=== PATIENT | male | born 1945 | race Caucasian/White ===

== ENCOUNTER 2017-10-30 14:19 | Outpatient (REF) | payer OTHER, SELFPAY ==
[2017-10-30 21:58] LABS: Anion Gap 14.5 mmol/L (3-11); BUN 22 mg/dL (7-18); CO2 21.5 mmol/L (21.0-32.0); CREATININE 1.63 mg/dL (0.70-1.30); Calcium 8.8 mg/dL (8.5-10.1); Chloride 105 mmol/L (98-107); Estimated GFR 41.68 (mL/min/1.73m2); Glucose 120 mg/dL (70-100); Potassium 4.5 mmol/L (3.5-5.1); Sodium 141 mmol/L (136-145)
== END 2017-10-30 14:20 ==
LOC: NCHCN 14:19
PROVIDERS: PCP Family Medicine; Visit Provider Family Medicine
DX: N17.9 Acute kidney failure, unspecified (principal)
CPT/HCPCS: 80048

== ENCOUNTER 2018-07-27 09:55 | Outpatient (REF) | payer OTHER, SELFPAY ==
[2018-07-27 21:01] LABS: HCT 51.9 % (40.0-50.0); HGB 17.6 g/dL (13.5-17.5); Mean Corp. HGB Concentration 33.9 g/dL (32.0-36.0); Mean Corpuscular Hemoglobin 29.9 pg (27.0-33.0); Mean Corpuscular Volume 88.3 fL (80-95); Mean Platelet Volume 11.2 fL (8.0-11.0); Platelet Count 217 x1000/uL (130-400); RBC 5.88 m/cumm (4.50-6.00); RBC Distribution Width 14.2 % (11.8-14.1); White Blood Cell Count 7.56 k/cumm (4.4-10.8)
[2018-07-27 21:41] LABS: ALT 52 U/L (12-78); AST 24 U/L (15-37); Alkaline Phosphatase 98 U/L (46-116); Anion Gap 10.2 mmol/L (3-11); BUN 16 mg/dL (7-18); Bilirubin, Total 0.7 mg/dL (0.2-1.0); CO2 25.8 mmol/L (21.0-32.0); CREATININE 1.41 mg/dL (0.70-1.30); Chloride 101 mmol/L (98-107); Cholesterol 175 mg/dL (50-200); Estimated GFR 49.27 (mL/min/1.73m2); Glucose 167 mg/dL (70-100); HDL Cholesterol 34 mg/dL (40-60); LDL CHOLESTEROL 131 mg/dL (<100); Potassium 4.6 mmol/L (3.5-5.1); Sodium 137 mmol/L (136-145); Total Protein 7.3 g/dL (6.4-8.2); Triglyceride 93 mg/dL (30-150)
[2018-07-30 12:16] LABS: PSA, Screening 0.9 ng/ml (0-6.5)
== END 2018-07-27 10:15 ==
LOC: NCHCN 09:55
PROVIDERS: PCP Family Medicine; Visit Provider Nurse Practitioner Family
DX: E11.9 Type 2 diabetes mellitus without complications (principal); I10 Essential (primary) hypertension; E78.5 Hyperlipidemia, unspecified; D75.1 Secondary polycythemia; N40.0 Benign prostatic hyperplasia without lower urinary tract symptoms; Z12.5 Encounter for screening for malignant neoplasm of prostate
CPT/HCPCS: 80053; 80061; 83721; 84153; 85027; 83036

== ENCOUNTER 2019-01-28 09:49 | Outpatient (REF) | payer OTHER, SELFPAY ==
[2019-01-28 21:25] LABS: HCT 51.5 % (40.0-50.0); HGB 17.3 g/dL (13.5-17.5); Mean Corp. HGB Concentration 33.6 g/dL (32.0-36.0); Mean Corpuscular Hemoglobin 31.1 pg (27.0-33.0); Mean Corpuscular Volume 92.5 fL (80-95); Mean Platelet Volume 10.7 fL (8.0-11.0); Platelet Count 221 x1000/uL (130-400); RBC 5.57 m/cumm (4.50-6.00); RBC Distribution Width 13.6 % (11.8-14.1); White Blood Cell Count 7.93 k/cumm (4.4-10.8)
[2019-01-28 21:54] LABS: Hemoglobin A1C 7.3 % (4.5-6.2)
[2019-01-28 21:56] LABS: COMMENT (LAB VIEW ONLY) 165.95 mg/dL; Microalb ug/mg Crea 15.2 ug/mg Cr
== END 2019-01-28 10:09 ==
LOC: NCHCN 09:49
PROVIDERS: PCP Family Medicine; Visit Provider Nurse Practitioner Family
DX: E11.9 Type 2 diabetes mellitus without complications (principal); I10 Essential (primary) hypertension; D75.1 Secondary polycythemia
CPT/HCPCS: 85027; 82043; 82570; 83036

== ENCOUNTER 2019-07-31 13:43 | Outpatient (REF) | payer OTHER, SELFPAY ==
[2019-07-31 21:32] LABS: Hemoglobin A1C 7.6 % (3.8-5.6)
[2019-07-31 21:50] LABS: Anion Gap 10.5 mmol/L (3-11); BUN 28 mg/dL (7-18); CO2 28.5 mmol/L (21.0-32.0); CREATININE 1.81 mg/dL (0.70-1.30); Calcium 9.5 mg/dL (8.5-10.1); Chloride 97 mmol/L (98-107); Estimated GFR 36.83 (mL/min/1.73m2); Glucose 137 mg/dL (74-106); Magnesium 1.6 mg/dL (1.8-2.4); Potassium 4.7 mmol/L (3.5-5.1); Sodium 136 mmol/L (136-145); Vitamin B12 263 pg/mL (193-986)
== END 2019-07-31 14:03 ==
LOC: NCHCN 13:43
PROVIDERS: PCP Family Medicine; Visit Provider Nurse Practitioner Family
DX: I10 Essential (primary) hypertension (principal); E11.9 Type 2 diabetes mellitus without complications; K22.70 Barrett's esophagus without dysplasia; N40.0 Benign prostatic hyperplasia without lower urinary tract symptoms
CPT/HCPCS: 80048; 82607; 83036; 83735; 84153

== ENCOUNTER 2020-04-21 10:21 | Outpatient (REF) | payer OTHER, SELFPAY ==
[2020-04-21 14:43] LABS: COMMENT (LAB VIEW ONLY) 201.87 mg/dL; Microalb ug/mg Crea 18.3 ug/mg Cr
== END 2020-04-21 10:41 ==
LOC: NCHCN 10:21
PROVIDERS: PCP Family Medicine; Visit Provider Nurse Practitioner Family
DX: E11.9 Type 2 diabetes mellitus without complications (principal); I10 Essential (primary) hypertension
CPT/HCPCS: 82043; 82570

== ENCOUNTER 2020-10-12 09:54 | Outpatient (REF) | payer OTHER, SELFPAY ==
[2020-10-12 16:32] LABS: HCT 52.2 % (40.0-50.0); HGB 17.3 g/dL (13.5-17.5); MCH 31.3 pg (27.0-33.0); MCHC 33.1 % (32.0-36.0); MCV 94.6 fL (80-95); MPV 11.1 fL (8.0-11.0); Platelet Count 232 10^3/uL (130-400); RBC 5.52 10^6/uL (4.36-5.78); RDW 13.3 % (11.8-14.1); WBC 7.39 10^3/uL (4.4-10.8)
[2020-10-12 17:01] LABS: Hemoglobin A1C 7.7 % (<5.7)
[2020-10-12 17:28] LABS: Anion Gap 9.1 mmol/L (3-11); BUN 18 mg/dL (7-18); CO2 28.9 mmol/L (21.0-32.0); CREATININE 1.3 mg/dL (0.70-1.30); Calcium 9.2 mg/dL (8.5-10.1); Chloride 104 mmol/L (98-107); Estimated GFR 53.67 (mL/min/1.73m2); Glucose 162 mg/dL (74-106); Magnesium 1.9 mg/dL (1.8-2.4); Potassium 5.1 mmol/L (3.5-5.1); Sodium 142 mmol/L (136-145); Vitamin B12 287 pg/mL (193-986)
[2020-10-12 22:29] LABS: PSA, Screening 0.9 ng/mL (0.0-6.5)
== END 2020-10-12 09:55 | disposition home or self-care (01) ==
LOC: NCHCN 09:54
PROVIDERS: PCP Family Medicine; Visit Provider Nurse Practitioner Family
DX: I12.9 Hypertensive chronic kidney disease with stage 1 through stage 4 chronic kidney disease, or unspecified chronic kidney disease (principal); E11.22 Type 2 diabetes mellitus with diabetic chronic kidney disease; N18.30 Chronic kidney disease, stage 3 unspecified; K22.70 Barrett's esophagus without dysplasia; G47.33 Obstructive sleep apnea (adult) (pediatric)
CPT/HCPCS: 80048; 84153; 85027; 82607; 83036; 83735

== ENCOUNTER 2021-04-08 13:49 | Outpatient (REF) | payer OTHER, SELFPAY ==
[2021-04-08 16:22] LABS: COMMENT (LAB VIEW ONLY) 50.01 mg/dL; Microalb ug/mg Crea 19.4 ug/mg Cr
== END 2021-04-08 13:50 | disposition home or self-care (01) ==
LOC: NCHCN 13:49
PROVIDERS: PCP Family Medicine; Visit Provider Nurse Practitioner Family
DX: E11.9 Type 2 diabetes mellitus without complications (principal); N18.30 Chronic kidney disease, stage 3 unspecified; I10 Essential (primary) hypertension
CPT/HCPCS: 82043; 82570

== ENCOUNTER 2021-09-02 07:49 | Outpatient (REF) | payer OTHER, SELFPAY ==
[2021-09-02 16:17] LABS: Anion Gap 8.3 mmol/L (3-11); BUN 22 mg/dL (7-18); CO2 27.7 mmol/L (21.0-32.0); CREATININE 1.5 mg/dL (0.70-1.30); Calcium 8.8 mg/dL (8.5-10.1); Chloride 103 mmol/L (98-107); Estimated GFR 45.38 (mL/min/1.73m2); Glucose 136 mg/dL (74-106); Potassium 4.5 mmol/L (3.5-5.1); Sodium 139 mmol/L (136-145)
== END 2021-09-02 07:50 | disposition home or self-care (01) ==
LOC: LBN 07:49
PROVIDERS: PCP Family Medicine; Visit Provider Physician Assistant
DX: I25.10 Atherosclerotic heart disease of native coronary artery without angina pectoris (principal)
CPT/HCPCS: 80048

== ENCOUNTER 2021-09-16 16:09 | Outpatient (REF) | payer OTHER, SELFPAY ==
[2021-09-16 15:54] LABS: Anion Gap 6.1 mmol/L (3-11); BUN 22 mg/dL (7-18); CO2 28.9 mmol/L (21.0-32.0); CREATININE 1.3 mg/dL (0.70-1.30); Chloride 103 mmol/L (98-107); Estimated GFR 53.53 (mL/min/1.73m2); Glucose 124 mg/dL (74-106); Potassium 4.5 mmol/L (3.5-5.1); Sodium 138 mmol/L (136-145)
== END 2021-09-16 16:10 | disposition home or self-care (01) ==
LOC: LBN 16:09
PROVIDERS: PCP Family Medicine; Visit Provider Physician Assistant
DX: I25.10 Atherosclerotic heart disease of native coronary artery without angina pectoris (principal)
CPT/HCPCS: 80048

== ENCOUNTER 2022-03-30 10:31 | Outpatient (REF) | payer OTHER, SELFPAY ==
[2022-03-30 14:02] LABS: HCT 51.9 % (40.0-50.0); HGB 17.1 g/dL (13.5-17.5); MCH 30.3 pg (27.0-33.0); MCHC 32.9 % (32.0-36.0); MCV 92 fL (80-95); MPV 10.3 fL (8.0-11.0); Platelet Count 203 10^3/uL (130-400); RBC 5.64 10^6/uL (4.36-5.78); RDW-SD 47.3 fL; WBC 10.46 10^3/uL (4.4-10.8)
[2022-03-30 14:11] LABS: Anion Gap 4.7 mmol/L (3-11); BUN 28 mg/dL (7-18); CO2 30.3 mmol/L (21.0-32.0); CREATININE 1.5 mg/dL (0.70-1.30); Calcium 9.4 mg/dL (8.5-10.1); Chloride 103 mmol/L (98-107); Estimated GFR 47.65 (mL/min/1.73m2); Glucose 107 mg/dL (74-106); Potassium 4.9 mmol/L (3.5-5.1); Sodium 138 mmol/L (136-145)
[2022-03-30 14:19] LABS: Hemoglobin A1C 7.5 % (<5.7)
[2022-03-31 09:18] LABS: PSA, Screening 0.7 ng/mL (<=6.5)
== END 2022-03-30 10:32 | disposition home or self-care (01) ==
LOC: NCHCN 10:31
PROVIDERS: PCP Family Medicine; Visit Provider Nurse Practitioner Family
DX: N40.0 Benign prostatic hyperplasia without lower urinary tract symptoms (principal); Z12.5 Encounter for screening for malignant neoplasm of prostate; Z80.42 Family history of malignant neoplasm of prostate; E11.9 Type 2 diabetes mellitus without complications; I10 Essential (primary) hypertension; N18.30 Chronic kidney disease, stage 3 unspecified; D75.1 Secondary polycythemia
CPT/HCPCS: 80048; 84153; 85027; 83036

== ENCOUNTER 2022-06-08 14:51 | Outpatient (REF) | payer OTHER, SELFPAY ==
--- OUTSIDE RECORDS SUMMARY | 2022-06-08 14:54 | XMS_ITS | CCD ---
Author Name Unknown Address [address] [place] [address] [phone] Organization Unknown Address [address] [place] [address] [phone] Care Team Providers Care Floor Worker Transfer [place] Name Role Phone DELICIA CURRIE Attending Physician [phone] DELICIA CURRIE Rounding (Secondary) Physician [phone] Vital Signs Unknown or Not Available. Allergies Allergy Code Allergy Type Reaction Status ATORVASTATIN 80241 Drug allergy DIZZINESS Active TERBINAFINE 41336 Drug allergy RASH Active No Known Environmental Allergies 0 No known environmental allergies Active No Known Food Allergies 0 No known food allergies Active Procedures Unknown or Not Available. History of Immunizations Unknown or Not Available. Problems Unknown or Not Available. Results Unknown or Not Available. Active Medications Medication Code Dose Units Frequency Route Modificatio n Start Date/Time amLODIPine Besylate 2.5MG Oral Tablet 198134 2.5 MILLIGRAMS DAILY ORAL 11:27 Prescription Detail TAKE 2.5 MILLIGRAMS ORAL DAILY ASPIRIN LOW DOSE 81MG ORAL TABLET 0 81 MILLIGRAMS DAILY ORAL 8 11:27 Prescription Detail TAKE 81 MILLIGRAMS ORAL DAILY Ibuprofen 600MG Oral Tablet 883072 600 MILLIGRAMS THREE TIMES A DAY ORAL 04/06/2017 11:27 Prescription Detail TAKE 600 MILLIGRAMS ORAL THREE TIMES A D AY Januvia 100MG Oral Tablet 291905 100 MILLIGRAMS DAILY ORAL 11:27 Prescription Detail TAKE 100 MILLIGRAMS ORAL DAILY Lisinopril 40MG Oral Tablet 187208 40 MILLIGRAMS DAILY ORAL 11:27 Prescription Detail TAKE 40 MILLIGRAMS ORAL DAILY metFORMIN HCl 1000MG Oral Tablet, Extended Release [id number] 1 TABLET TWICE A DAY ORAL 04/06/19 18 11:27 Prescription Detail TAKE 1 TABLET ORAL TWICE A DAY Medications Administered During Visit Unknown or Not Available. Encounters Encounter Diagnosis Diagnosis Code Start Date Atherosclerotic heart diseas e of [place] coronary artery with other forms of angina pectoris [id number] 08/24/2021 Social History Smoking Status Code Start Date End Date Former smoker [id number] Patient Decision Aids Unknown or Not Available. Discharge Instructions You were admitted to [facility] on 08/24/2021 15:34 with a principal diagnosis of Atherosclerotic heart disease of [place] coronary artery with other forms of angina pectoris You were discharged from [facility] on 08/24/2021 00:00 Should you have any questions prior to discharge, please contact a member of your healthcare team. If you have left the hospital and have any questions, please contact your primary care physician. Chief Complaint and Reason For Visit Unknown or Not Available. Function Status Unknown or Not Available. Plan of Care Unknown or Not Available. Referral/Transition of Care Unknown or Not Available.
--- OUTSIDE RECORDS SUMMARY | 2022-06-08 14:54 | XMS_ITS | CCD ---
Author Name Unknown Address [address] [place] [address] [phone] Organization Unknown Address [address] [place] [address] [phone] Care Team Providers Care Supervisor Tank House Name Role Phone MORIAH FLORES Attending Physician [phone] Vital Signs Vital Sign Value Unit Date/Time Recent/Initial ? BP Systolic 109 mmHg 03/10/2021 09:30 Initial VS BP Diastolic 82 mmHg 03/10/2021 09:30 Initia l VS Respiratory Rate 16 bpm 03/10/2021 09:30 In itial VS Heart Rate 72 bpm 03/10/2021 09:30 Initial VS O2 % BldC Oximetry 94 % 03/10/2021 09:30 Initial VS Body Temperature 36 degrees 03/10/2021 09:30 In itial VS Allergies Allergy Code Allergy Type Reaction Status ATORVASTATIN 90150 Drug allergy DIZZINESS Active TERBINAFINE 73310 Drug allergy RASH Active No Known Environmental Allergies 0 No known environmental allergies Active No Known Food Allergies 0 No known food allergies Active Procedures Procedure Code Procedure Type Date EGD Transoral Biopsy Single/Multiple 96907 CPT 03/10/2021 History of Immunizations Unknown or Not Available. Problems Unknown or Not Available. Results GLUCOSE FINGER/HEEL CAPILLAR Y - Collect Date/Time: 03/10/2021 08:28 Test Name Code Test Result Test Units Test Ref Rang e GLUCOSE CAP 151 mg/dL L=70 H=116 Active Medications Medication Code Dose Units Frequency Route Modificatio n Start Date/Time amLODIPine Besylate 2.5MG Oral Tablet 330681 2.5 MILLIGRAMS DAILY ORAL 018 11:27 Prescription Detail TAKE 2.5 MILLIGRAMS ORAL DAILY ASPIRIN LOW DOSE 81MG ORAL TABLET 0 81 MILLIGRAMS DAILY ORAL 8 11:27 Prescription Detail TAKE 81 MILLIGRAMS ORAL DAILY Ibuprofen 600MG Oral Tablet 580723 600 MILLIGRAMS THREE TIMES A DAY ORAL 04/06/2017 11:27 Prescription Detail TAKE 600 MILLIGRAMS ORAL THREE TIMES A D AY Feiuvia 100MG Oral Tablet 278224 100 MILLIGRAMS DAILY ORAL 11:27 Prescription Detail TAKE 100 MILLIGRAMS ORAL DAILY Lisinopril 40MG Oral Tablet 736344 40 MILLIGRAMS DAILY ORAL 11:27 Prescription Detail TAKE 40 MILLIGRAMS ORAL DAILY metFORMIN HCl 1000MG Oral Tablet, Extended Release [id number] 1 TABLET TWICE A DAY ORAL 04/06/19 11:27 Prescription Detail TAKE 1 TABLET ORAL TWICE A DAY Medications Administered During Visit Unknown or Not Available. Encounters Encounter Diagnosis Diagnosis Code Start Date Gastric intestinal metaplasia, unspecified [id number] 03/10/2021 Social History Smoking Status Code Start Date End Date Former smoker [id number] Patient Decision Aids Unknown or Not Available. Discharge Instructions You were admitted to [facility] on 03/10/2021 08:11 with a principal diagnosis of Gastric intestinal metaplasia, unspecified You had the following procedures done:EGD Transoral Biopsy Single/Multiple You had the following tests done:GLUCOSE FINGER/HEEL CAPILLARY You were discharged from [facility] on 03/10/2021 09:50 Should you have any questions prior to [...]
--- OUTSIDE RECORDS SUMMARY | 2022-06-08 14:54 | XMS_ITS | CCD ---
Author Name Unknown Address [address] [place] [address] [phone] Organization Unknown Address [address] [place] [address] [phone] Care Team Providers Care Preservationist Name Role Phone AMOL BLACKBURN Attending Physician [phone] AMOL BLACKBURN Er Physician [phone] EDIN Bonner Registered Nurse [phone] Vital Signs Unknown or Not Available. Allergies Allergy Code Allergy Type Reaction Status ATORVASTATIN 74714 Drug allergy DIZZINESS Active TERBINAFINE 77462 Drug allergy RASH Active No Known Environmental Allergies 0 No known environmental allergies Active No Known Food Allergies 0 No known food allergies Active Procedures Unknown or Not Available. History of Immunizations Unknown or Not Available. Problems Unknown or Not Available. Results COMPREHENSIVE METABOLIC PANE L (CMP) - Collect Date/Time: 07/29/2021 14:25 Test Name Code Test Result Test Units Test Ref Rang e GLUCOSE 2345-7 187 mg/dL L=70 H=116 BUN 3094-0 26 mg/dL L=6 H=25 CREATININE 2160-0 1.99 mg/dL L=0.67 H=1.17 SODIUM SERUM 2951-2 137 mmol/L L=136 H=145 POTASSIUM SERUM 2823-3 5.4 mmol/L L=3.4 H=5 .2 CHLORIDE SERUM 2075-0 103 mmol/L L=96 H=110 CARBON DIOXIDE (CO2) 2028-9 22 mmol/L L=22 H=34 ANION GAP 86073-1 11.7 mmol/L CALCIUM SERUM 94134-3 8.3 mg/dL L=8.2 H=10. 2 BILIRUBIN TOTAL 1975-2 0.5 mg/dL L=0.0 H=1 .3 ALK. PHOS. 6768-6 70 U/L L=46 H=116 SGOT (AST) 1920-8 57 U/L L=15 H=37 SGPT (ALT) 1742-6 23 U/L L=12 H=78 TOTAL PROTEIN 2885-2 6.7 gm/dL L=6.0 H=8.0 ALBUMIN 1751-7 3.2 gm/dL L=3.4 H=5.0 AGE 75 years eGFR (non-Afr.Amer.) 85715-0 33 mL/min eGFR (Afr-Cuban) 57197-5 40 mL/min TROPONIN HIGH SENSITIVITY* - Collect Date/Time: 07/29/2021 14:25 Test Name Code Test Result Test Units Test Ref Rang e TROPONIN HS 4430.6 pg/mL L=0.0 H=60.4 Specimen seq. ADM. N/A CBC W/ DIFFERENTIAL* - Colle ct Date/Time: 07/29/2021 14:25 Test Name Code Test Result Test Units Test Ref Rang e WBC 6690-2 9.17 th/cmm L=5.00 H=10.00 NEUT % 71.0 % L=40.0 H=80.0 LYMPH % 16.7 % L=10.0 H=50.0 MONO % 64090-8 10.9 % L=2.0 H=12.0 EOS % 0.9 % L=0.0 H=8.0 BASO % 0.2 % L=0.0 H=3.0 IG % 2514-8 0.3 % L=0.0 H=1.1 NRBC % 77274-0 0.0 % L=0.0 H=0.0 NEUT abs count 751-8 6.5 th/cmm L=1.6 H=8. 4 LYMPH abs count 731-0 1.5 th/cmm L=1.5 H=4 .0 MONO abs count 742-7 1.0 th/cmm L=0.2 H=1. 0 EOS abs count 711-2 0.1 th/cmm L=0.0 H=0.5 BASO abs count 704-7 0.0 th/cmm L=0.0 H=0. 2 IG abs count 05809-5 0.0 th/cmm L=0.0 H=0.1 NRBC abs count 48945-6 0.0 mil/cmm L=0.0 H=0. 0 RBC 789-8 5.61 mil/cmm L=4.30 H=6.20 HEMOGLOBIN 718-7 16.9 gm/dL L=13.0 H=17.0 HEMATOCRIT 4544-3 51 % L=45 H=52 MCV 787-2 91 fL L=82 H=92 MCH 785-6 30.1 pg L=27.0 H=31.0 MCHC 786-4 33.1 % L=32.0 H=36.0 RDW-SD 788-0 49.4 fL L=39.0 H=49.0 PLATELET COUNT 777-3 172 th/cmm L=150 H=45 0 Active Medications Medications Administered During Visit Medication Dose Units Frequency Route Date/Time of Last Dose TICAGRELOR TABLET: 90MG 180 MG X1 PO 07/29/2021 14:22 HEPARIN INJ SDV: 5,000 UNITS/ML 5000 UNITS X1 IVP 07/29/2021 14:22 Encounters Encounter Diagnosis Diagnosis Code Start Date ST elevation (STEMI) myocard ial infarction of unspecified site I213 07/29/2021 Social History Smoking Status Code Start Date End Date Former smoker [id number] Patient Decision Aids Unknown or Not Available. Discharge Instructions You were admitted to [facility] on 07/29/2021 13:57 with a principal diagnosis of ST elevation (STEMI) myocardial infarction of unspecified site You had the following tests done:CBC W/ DIFFERENTIAL*COMPREHENSIVE METABOLIC PANEL (CMP)TROPONIN HIGH SENSITIVITY* You were discharged from [facility] on 07/29/2021 15:01 Should you have any questions prior to discharge, please contact a member of your healthcare team. If you have left the hospital and have any questions, please contact your primary care physician. Chief Complaint and Reason For Visit Chief Complaint Date of Onset WEAKNESS Function Status Unknown or Not Available. Plan of Care Unknown or Not Available. Referral/Transition of Care Unknown or Not Available.
--- OUTSIDE RECORDS SUMMARY | 2022-06-08 14:54 | XMS_ITS | CCD ---
Author Name Unknown Address [address] [place] [address] [phone] Organization Unknown Address [address] [place] [address] [phone] Care Team Providers Care Ore Bridge Operator Name Role Phone MORIAH FLORES Attending Physician [phone] Vital Signs Unknown or Not Available. Allergies Allergy Code Allergy Type Reaction Status TERBINAFINE 79689 Drug allergy Active No Known Environmental Allergies 0 No known environmental allergies Active No Known Food Allergies 0 No known food allergies Active Procedures Unknown or Not Available. History of Immunizations Unknown or Not Available. Problems Unknown or Not Available. Results RAMSES RICKSID ALEKSEYX* - Bart ect Date/Time: 03/08/2021 09:46 Test Name Code Test Result Test Units Test Ref Rang e SOURCE= Anterior nasal N/A Tier- PRE-OP N/A SARS COV2 RNA: 41452-0 NEGATIVE N/A REFERENCE RANGE: NEGAT Active Medications Medication Code Dose Units Frequency Route Modificatio n Start Date/Time amLODIPine Besylate 2.5MG Oral Tablet 745514 2.5 MILLIGRAMS DAILY ORAL 11:27 Prescription Detail TAKE 2.5 MILLIGRAMS ORAL DAILY ASPIRIN LOW DOSE 81MG ORAL TABLET 0 81 MILLIGRAMS DAILY ORAL 8 11:27 Prescription Detail TAKE 81 MILLIGRAMS ORAL DAILY Ibuprofen 600MG Oral Tablet 693993 600 MILLIGRAMS THREE TIMES A DAY ORAL 04/06/2017 11:27 Prescription Detail TAKE 600 MILLIGRAMS ORAL THREE TIMES A D AY Januvia 100MG Oral Tablet 590986 100 MILLIGRAMS DAILY ORAL 11:27 Prescription Detail TAKE 100 MILLIGRAMS ORAL DAILY Lisinopril 40MG Oral Tablet 265234 40 MILLIGRAMS DAILY ORAL 11:27 Prescription Detail TAKE 40 MILLIGRAMS ORAL DAILY metFORMIN HCl 1000MG Oral Tablet, Extended Release [id number] 1 TABLET TWICE A DAY ORAL 04/06/19 18 11:27 Prescription Detail TAKE 1 TABLET ORAL TWICE A DAY Medications Administered During Visit Unknown or Not Available. Encounters Encounter Diagnosis Diagnosis Code Start Date Pre-surgery testing [id number] 03/08/2021 Social History Smoking Status Code Start Date End Date Former smoker [id number] Patient Decision Aids Unknown or Not Available. Discharge Instructions You were admitted to [facility] on 03/08/2021 23:14 with a principal diagnosis of Encounter for preprocedural laboratory examination You had the following tests done:RAMSES COVID RHEONIX* You were discharged from [facility] on 03/08/2021 23:15 Should you have any questions prior to [...]
--- OUTSIDE RECORDS SUMMARY | 2022-06-08 14:55 | XMS_ITS | CCD ---
Author Name Unknown Address [address] [place] [address] [phone] Organization Unknown Address [address] [place] [address] [phone] Care Team Providers Care Snowboarder Name Role Phone DELICIA CURRIE Attending Physician [phone] DELICIA CURRIE Rounding (Secondary) Physician [phone] Vital Signs Unknown or Not Available. Allergies Allergy Code Allergy Type Reaction Status ATORVASTATIN 24963 Drug allergy DIZZINESS Active TERBINAFINE 34034 Drug allergy RASH Active No Known Environmental Allergies 0 No known environmental allergies Active No Known Food Allergies 0 No known food allergies Active Procedures Unknown or Not Available. History of Immunizations Unknown or Not Available. Problems Unknown or Not Available. Results Unknown or Not Available. Active Medications Medication Code Dose Units Frequency Route Modificatio n Start Date/Time amLODIPine Besylate 2.5MG Oral Tablet 471541 2.5 MILLIGRAMS DAILY ORAL 11:27 Prescription Detail TAKE 2.5 MILLIGRAMS ORAL DAILY ASPIRIN LOW DOSE 81MG ORAL TABLET 0 81 MILLIGRAMS DAILY ORAL 8 11:27 Prescription Detail TAKE 81 MILLIGRAMS ORAL DAILY Ibuprofen 600MG Oral Tablet 229749 600 MILLIGRAMS THREE TIMES A DAY ORAL 04/06/2017 11:27 Prescription Detail TAKE 600 MILLIGRAMS ORAL THREE TIMES A D AY Januvia 100MG Oral Tablet 016527 100 MILLIGRAMS DAILY ORAL 11:27 Prescription Detail TAKE 100 MILLIGRAMS ORAL DAILY Lisinopril 40MG Oral Tablet 521836 40 MILLIGRAMS DAILY ORAL 11:27 Prescription Detail TAKE 40 MILLIGRAMS ORAL DAILY metFORMIN HCl 1000MG Oral Tablet, Extended Release [id number] 1 TABLET TWICE A DAY ORAL 04/06/19 18 11:27 Prescription Detail TAKE 1 TABLET ORAL TWICE A DAY Medications Administered During Visit Unknown or Not Available. Encounters Encounter Diagnosis Diagnosis Code Start Date Atherosclerotic heart diseas e of [place] coronary artery with other forms of angina pectoris B47722 09/21/2021 Social History Smoking Status Code Start Date End Date Former smoker [id number] Patient Decision Aids Unknown or Not Available. Discharge Instructions You were admitted to [facility] on 09/21/2021 10:04 with a principal diagnosis of Atherosclerotic heart disease of [place] coronary artery with other forms of angina pectoris You were discharged from [facility] on 09/21/2021 00:00 Should you have any questions prior [...]
--- OUTSIDE RECORDS SUMMARY | 2022-06-08 14:55 | XMS_ITS | CCD ---
Author Name Unknown Address [address] [place] [address] [phone] Organization Unknown Address [address] [place] [address] [phone] Care Team Providers Care Meeting Manager Name Role Phone WALLY BAUMANN Attending Physician [phone] Vital Signs Unknown or Not Available. Allergies Allergy Code Allergy Type Reaction Status ATORVASTATIN 25710 Drug allergy DIZZINESS Active TERBINAFINE 52534 Drug allergy RASH Active No Known Environmental Allergies 0 No known environmental allergies Active No Known Food Allergies 0 No known food allergies Active Procedures Unknown or Not Available. History of Immunizations Unknown or Not Available. Problems Unknown or Not Available. Results RAMSES COVID RHEONIX* - Bart ect Date/Time: 08/27/2021 10:09 Test Name Code Test Result Test Units Test Ref Rang e Tier- 34167-1 PRE-OP N/A SARS COV2 RNA: 29666-6 NEGATIVE N/A REFERENCE RANGE: NEGAT Active Medications Medication Code Dose Units Frequency Route Modificatio n Start Date/Time amLODIPine Besylate 2.5MG Oral Tablet 840067 2.5 MILLIGRAMS DAILY ORAL 11:27 Prescription Detail TAKE 2.5 MILLIGRAMS ORAL DAILY ASPIRIN LOW DOSE 81MG ORAL TABLET 0 81 MILLIGRAMS DAILY ORAL 8 11:27 Prescription Detail TAKE 81 MILLIGRAMS ORAL DAILY Ibuprofen 600MG Oral Tablet 219873 600 MILLIGRAMS THREE TIMES A DAY ORAL 04/06/2017 11:27 Prescription Detail TAKE 600 MILLIGRAMS ORAL THREE TIMES A D AY Januvia 100MG Oral Tablet 040971 100 MILLIGRAMS DAILY ORAL 018 11:27 Prescription Detail TAKE 100 MILLIGRAMS ORAL DAILY Lisinopril 40MG Oral Tablet 098397 40 MILLIGRAMS DAILY ORAL 11:27 Prescription Detail TAKE 40 MILLIGRAMS ORAL DAILY metFORMIN HCl 1000MG Oral Tablet, Extended Release [id number] 1 TABLET TWICE A DAY ORAL 04/06/19 18 11:27 Prescription Detail TAKE 1 TABLET ORAL TWICE A DAY Medications Administered During Visit Unknown or Not Available. Encounters Encounter Diagnosis Diagnosis Code Start Date Pre-surgery testing [id number] 08/27/2021 Social History Smoking Status Code Start Date End Date Former smoker [id number] Patient Decision Aids Unknown or Not Available. Discharge Instructions You were admitted to [facility] on 08/27/2021 18:35 with a principal diagnosis of Encounter for preprocedural laboratory examination You had the following tests done:RAMSES RICKSID RHEONIX* You were discharged from [facility] on 08/27/2021 18:35 Should you have any questions prior to [...]
--- OUTSIDE RECORDS SUMMARY | 2022-06-08 14:55 | XMS_ITS | CCD ---
Author Name Unknown Address [address] [place] [address] [phone] Organization Unknown Address [address] [place] [address] [phone] Care Team Providers Care Shredder Operator Name Role Phone GABRIEL DOWLING Attending Physician [phone] Vital Signs Unknown or Not Available. Allergies Allergy Code Allergy Type Reaction Status ATORVASTATIN 70119 Drug allergy DIZZINESS Active TERBINAFINE 64774 Drug allergy RASH Active No Known Environmental Allergies 0 No known environmental allergies Active No Known Food Allergies 0 No known food allergies Active Procedures Unknown or Not Available. History of Immunizations Unknown or Not Available. Problems Unknown or Not Available. Results Unknown or Not Available. Active Medications Medication Code Dose Units Frequency Route Modificatio n Start Date/Time amLODIPine Besylate 2.5MG Oral Tablet 412010 2.5 MILLIGRAMS DAILY ORAL 11:27 Prescription Detail TAKE 2.5 MILLIGRAMS ORAL DAILY ASPIRIN LOW DOSE 81MG ORAL TABLET 0 81 MILLIGRAMS DAILY ORAL 8 11:27 Prescription Detail TAKE 81 MILLIGRAMS ORAL DAILY Ibuprofen 600MG Oral Tablet 743626 600 MILLIGRAMS THREE TIMES A DAY ORAL 04/06/2017 11:27 Prescription Detail TAKE 600 MILLIGRAMS ORAL THREE TIMES A D AY Januvia 100MG Oral Tablet 147336 100 MILLIGRAMS DAILY ORAL 018 11:27 Prescription Detail TAKE 100 MILLIGRAMS ORAL DAILY Lisinopril 40MG Oral Tablet 794607 40 MILLIGRAMS DAILY ORAL 11:27 Prescription Detail TAKE 40 MILLIGRAMS ORAL DAILY metFORMIN HCl 1000MG Oral Tablet, Extended Release 4954826 1 TABLET TWICE A DAY ORAL 04/06/19 18 11:27 Prescription Detail TAKE 1 TABLET ORAL TWICE A DAY Medications Administered During Visit Unknown or Not Available. Encounters Encounter Diagnosis Diagnosis Code Start Date ST elevation (STEMI) myocard ial infarction of unspecified site I213 09/22/2021 Social History Smoking Status Code Start Date End Date Former smoker [id number] Patient Decision Aids Unknown or Not Available. Discharge Instructions You were admitted to [facility] on 09/22/2021 08:22 with a principal diagnosis of ST elevation (STEMI) myocardial infarction of unspecified site You were discharged from [facility] on 11/05/2021 12:06 Should you have any questions prior to [...]
--- OUTSIDE RECORDS SUMMARY | 2022-06-08 14:55 | XMS_ITS | CCD ---
Author Name Unknown Address [address] [place] [address] [phone] Organization Unknown Address [address] [place] [address] [phone] Care Team Providers Care Lease Administrator Name Role Phone DELICIA CURRIE Attending Physician [phone] DELICIA CURRIE Rounding (Secondary) Physician [phone] Vital Signs Unknown or Not Available. Allergies Allergy Code Allergy Type Reaction Status ATORVASTATIN 50616 Drug allergy DIZZINESS Active TERBINAFINE 85404 Drug allergy RASH Active No Known Environmental Allergies 0 No known environmental allergies Active No Known Food Allergies 0 No known food allergies Active Procedures Unknown or Not Available. History of Immunizations Unknown or Not Available. Problems Unknown or Not Available. Results Unknown or Not Available. Active Medications Medication Code Dose Units Frequency Route Modificatio n Start Date/Time amLODIPine Besylate 2.5MG Oral Tablet 216477 2.5 MILLIGRAMS DAILY ORAL 11:27 Prescription Detail TAKE 2.5 MILLIGRAMS ORAL DAILY ASPIRIN LOW DOSE 81MG ORAL TABLET 0 81 MILLIGRAMS DAILY ORAL 8 11:27 Prescription Detail TAKE 81 MILLIGRAMS ORAL DAILY Ibuprofen 600MG Oral Tablet 461645 600 MILLIGRAMS THREE TIMES A DAY ORAL 04/06/2017 11:27 Prescription Detail TAKE 600 MILLIGRAMS ORAL THREE TIMES A D AY Januvia 100MG Oral Tablet 255627 100 MILLIGRAMS DAILY ORAL 11:27 Prescription Detail TAKE 100 MILLIGRAMS ORAL DAILY Lisinopril 40MG Oral Tablet 733304 40 MILLIGRAMS DAILY ORAL 11:27 Prescription Detail TAKE 40 MILLIGRAMS ORAL DAILY metFORMIN HCl 1000MG Oral Tablet, Extended Release 1131685 1 TABLET TWICE A DAY ORAL 04/06/19 18 11:27 Prescription Detail TAKE 1 TABLET ORAL TWICE A DAY Medications Administered During Visit Unknown or Not Available. Encounters Encounter Diagnosis Diagnosis Code Start Date Aortic stenosis, non-rheumatic [id number] 1 Social History Smoking Status Code Start Date End Date Former smoker [id number] Patient Decision Aids Unknown or Not Available. Discharge Instructions You were admitted to [facility] on 01/18/2022 08:54 with a principal diagnosis of Nonrheumatic aortic (valve) stenosis You were discharged from [facility] on 01/18/2022 00:00 Should you have any questions prior [...]
[2022-06-08 20:46] LABS: HCT 52.5 % (40.0-50.0); HGB 17.4 g/dL (13.5-17.5); MCHC 33.1 % (32.0-36.0); MCV 91 fL (80-95); MPV 11.4 fL (8.0-11.0); Platelet Count 203 10^3/uL (130-400); RDW 14.4 % (11.8-14.1); RDW-SD 47.7 fL; WBC 7.95 10^3/uL (4.4-10.8)
[2022-06-08 20:53] LABS: Anion Gap 8.4 mmol/L (3-11); BUN 22 mg/dL (7-18); CO2 26.6 mmol/L (21.0-32.0); CREATININE 1.7 mg/dL (0.70-1.30); Calcium 8.9 mg/dL (8.5-10.1); Chloride 104 mmol/L (98-107); Estimated GFR 41.01 (mL/min/1.73m2); Glucose 138 mg/dL (74-106); Potassium 4.7 mmol/L (3.5-5.1); Sodium 139 mmol/L (136-145)
== END 2022-06-08 14:52 | disposition home or self-care (01) ==
LOC: NCHCN 14:51
PROVIDERS: PCP Family Medicine; Visit Provider Internal Medicine
DX: N18.30 Chronic kidney disease, stage 3 unspecified (principal); R06.09 Other forms of dyspnea
CPT/HCPCS: 80048; 85027

== ENCOUNTER 2022-10-13 17:33 | Outpatient (REF) | payer OTHER, SELFPAY ==
[2022-10-13 14:33] LABS: HCT 50.8 % (40.0-50.0); HGB 16.6 g/dL (13.5-17.5); MCH 29.6 pg (27.0-33.0); MCHC 32.7 % (32.0-36.0); MCV 91 fL (80-95); MPV 10.1 fL (8.0-11.0); Platelet Count 232 10^3/uL (130-400); RBC 5.61 10^6/uL (4.36-5.78); RDW 14.1 % (11.8-14.1); RDW-SD 47.2 fL; WBC 6.34 10^3/uL (4.4-10.8)
[2022-10-13 14:38] LABS: Anion Gap 6.8 mmol/L (3-11); BUN 24 mg/dL (7-18); CO2 28.2 mmol/L (21.0-32.0); CREATININE 1.4 mg/dL (0.70-1.30); Calcium 9.1 mg/dL (8.5-10.1); Chloride 105 mmol/L (98-107); Estimated GFR 51.45 (mL/min/1.73m2); Glucose 93 mg/dL (74-106); Potassium 5.2 mmol/L (3.5-5.1); Sodium 140 mmol/L (136-145)
[2022-10-13 21:33] LABS: COMMENT (LAB VIEW ONLY) 97.13 mg/dL; Microalb ug/mg Crea 10.6 ug/mg Cr
== END 2022-10-13 17:34 | disposition home or self-care (01) ==
LOC: NCHCN 17:33
PROVIDERS: PCP Family Medicine; Visit Provider Nurse Practitioner Family
DX: I10 Essential (primary) hypertension (principal); I25.10 Atherosclerotic heart disease of native coronary artery without angina pectoris; D75.1 Secondary polycythemia
CPT/HCPCS: 80048; 85027; 82043; 82570

== ENCOUNTER 2023-04-11 11:42 | Outpatient (REF) | payer OTHER, SELFPAY ==
--- OUTSIDE RECORDS SUMMARY | 2023-04-11 11:45 | XMS_ITS | CCD ---
Author Name Unknown Address [address] [place] [address] [phone] Organization Unknown Address [address] [place] [address] [phone] Care Team Providers Care Entry Examiner Name Role Phone CURRIEDELICIA ALCAZAR Attending Physician [phone] Vital Signs Unknown or Not Available. Allergies Allergy Code Allergy Type Reaction Status ATORVASTATIN 26613 Drug allergy DIZZINESS Active TERBINAFINE 01888 Drug allergy RASH Active No Known Environmental Allergies 0 No known environmental allergies Active No Known Food Allergies 0 No known food allergies Active Procedures Unknown or Not Available. History of Immunizations Unknown or Not Available. Problems Unknown or Not Available. Results Unknown or Not Available. Active Medications Medication Code Dose Units Frequency Route Modificatio n Start Date/Time amLODIPine Besylate 2.5MG Oral Tablet 814514 2.5 MILLIGRAMS DAILY ORAL 11:27 Prescription Detail TAKE 2.5 MILLIGRAMS ORAL DAILY ASPIRIN LOW DOSE 81MG ORAL TABLET 0 81 MILLIGRAMS DAILY ORAL 8 11:27 Prescription Detail TAKE 81 MILLIGRAMS ORAL DAILY Ibuprofen 600MG Oral Tablet 844121 600 MILLIGRAMS THREE TIMES A DAY ORAL 04/06/2017 11:27 Prescription Detail TAKE 600 MILLIGRAMS ORAL THREE TIMES A D AY Januvia 100MG Oral Tablet 409685 100 MILLIGRAMS DAILY ORAL 11:27 Prescription Detail TAKE 100 MILLIGRAMS ORAL DAILY Lisinopril 40MG Oral Tablet 820927 40 MILLIGRAMS DAILY ORAL 11:27 Prescription Detail TAKE 40 MILLIGRAMS ORAL DAILY metFORMIN HCl 1000MG Oral Tablet, Extended Release [id number] 1 TABLET TWICE A DAY ORAL 04/06/19 18 11:27 Prescription Detail TAKE 1 TABLET ORAL TWICE A DAY Medications Administered During Visit Unknown or Not Available. Encounters Encounter Diagnosis Diagnosis Code Start Date Hypertensive heart disease with congestive heart failure [id number] 07/26/2022 Social History Smoking Status Code Start Date End Date Former smoker [id number] Patient Decision Aids Unknown or Not Available. Discharge Instructions You were admitted to [facility] on 07/26/2022 14:49 with a principal diagnosis of Hypertensive heart disease with heart failure You were discharged from [facility] on 07/26/2022 14:49 Should you have any questions prior to [...]
--- OUTSIDE RECORDS SUMMARY | 2023-04-11 11:45 | XMS_ITS | CCD ---
Author Name Unknown Address [address] [place] [address] [phone] Organization Unknown Address [address] [place] [address] [phone] Care Team Providers Care Parasitologist Name Role Phone GABRIEL DOWLING Attending Physician [phone] Vital Signs Unknown or Not Available. Allergies Allergy Code Allergy Type Reaction Status ATORVASTATIN 28020 Drug allergy DIZZINESS Active TERBINAFINE 73846 Drug allergy RASH Active No Known Environmental Allergies 0 No known environmental allergies Active No Known Food Allergies 0 No known food allergies Active Procedures Unknown or Not Available. History of Immunizations Unknown or Not Available. Problems Unknown or Not Available. Results Unknown or Not Available. Active Medications Medication Code Dose Units Frequency Route Modificatio n Start Date/Time amLODIPine Besylate 2.5MG Oral Tablet 420072 2.5 MILLIGRAMS DAILY ORAL 11:27 Prescription Detail TAKE 2.5 MILLIGRAMS ORAL DAILY ASPIRIN LOW DOSE 81MG ORAL TABLET 0 81 MILLIGRAMS DAILY ORAL 8 11:27 Prescription Detail TAKE 81 MILLIGRAMS ORAL DAILY Ibuprofen 600MG Oral Tablet 063640 600 MILLIGRAMS THREE TIMES A DAY ORAL 04/06/2017 11:27 Prescription Detail TAKE 600 MILLIGRAMS ORAL THREE TIMES A D AY Januvia 100MG Oral Tablet 012655 100 MILLIGRAMS DAILY ORAL 018 11:27 Prescription Detail TAKE 100 MILLIGRAMS ORAL DAILY Lisinopril 40MG Oral Tablet 533210 40 MILLIGRAMS DAILY ORAL 11:27 Prescription Detail TAKE 40 MILLIGRAMS ORAL DAILY metFORMIN HCl 1000MG Oral Tablet, Extended Release [id number] 1 TABLET TWICE A DAY ORAL 04/06/19 18 11:27 Prescription Detail TAKE 1 TABLET ORAL TWICE A DAY Medications Administered During Visit Unknown or Not Available. Encounters Encounter Diagnosis Diagnosis Code Start Date ST elevation (STEMI) myocard ial infarction of unspecified site I213 09/22/2021 Social History Smoking Status Code Start Date End Date Former smoker [id number] Patient Decision Aids Unknown or Not Available. Discharge Instructions You were admitted to [facility] on 09/22/2021 08:22 with a principal diagnosis of ST elevation (STEMI) myocardial infarction of unspecified site You were discharged from [facility] on 11/05/2021 12:06 Should you have [...]
--- OUTSIDE RECORDS SUMMARY | 2023-04-11 11:45 | XMS_ITS | CCD ---
Author Name Unknown Address [address] [place] [address] [phone] Organization Unknown Address [address] [place] [address] [phone] Care Team Providers Care Pattern Data Operator Name Role Phone DELICIA CURRIE Attending Physician [phone] DELICIA CURRIE Rounding (Secondary) Physician [phone] Vital Signs Unknown or Not Available. Allergies Allergy Code Allergy Type Reaction Status ATORVASTATIN 06979 Drug allergy DIZZINESS Active TERBINAFINE 44724 Drug allergy RASH Active No Known Environmental Allergies 0 No known environmental allergies Active No Known Food Allergies 0 No known food allergies Active Procedures Unknown or Not Available. History of Immunizations Unknown or Not Available. Problems Unknown or Not Available. Results Unknown or Not Available. Active Medications Medication Code Dose Units Frequency Route Modificatio n Start Date/Time amLODIPine Besylate 2.5MG Oral Tablet 551607 2.5 MILLIGRAMS DAILY ORAL 11:27 Prescription Detail TAKE 2.5 MILLIGRAMS ORAL DAILY ASPIRIN LOW DOSE 81MG ORAL TABLET 0 81 MILLIGRAMS DAILY ORAL 8 11:27 Prescription Detail TAKE 81 MILLIGRAMS ORAL DAILY Ibuprofen 600MG Oral Tablet 798094 600 MILLIGRAMS THREE TIMES A DAY ORAL 04/06/2017 11:27 Prescription Detail TAKE 600 MILLIGRAMS ORAL THREE TIMES A D AY Januvia 100MG Oral Tablet 174288 100 MILLIGRAMS DAILY ORAL 11:27 Prescription Detail TAKE 100 MILLIGRAMS ORAL DAILY Lisinopril 40MG Oral Tablet 777052 40 MILLIGRAMS DAILY ORAL 11:27 Prescription Detail TAKE 40 MILLIGRAMS ORAL DAILY metFORMIN HCl 1000MG Oral Tablet, Extended Release [id number] 1 TABLET TWICE A DAY ORAL 04/06/19 18 11:27 Prescription Detail TAKE 1 TABLET ORAL TWICE A DAY Medications Administered During Visit Unknown or Not Available. Encounters Encounter Diagnosis Diagnosis Code Start Date Atherosclerotic heart diseas e of [place] coronary artery with other forms of angina pectoris [id number] 09/21/2021 Social History Smoking Status Code Start Date End Date Former smoker [id number] Patient Decision Aids Unknown or Not Available. Discharge Instructions You were admitted to [facility] on 09/21/2021 10:04 with a principal diagnosis of Atherosclerotic heart disease of [place] coronary artery with other forms of angina pectoris You were discharged from [facility] on 09/21/2021 00:00 Should you have [...]
--- OUTSIDE RECORDS SUMMARY | 2023-04-11 11:46 | XMS_ITS | CCD ---
Author Name Unknown Address [address] [place] [address] [phone] Organization Unknown Address [address] [place] [address] [phone] Care Team Providers Care Game Advisor Name Role Phone AMOL BLACKBURN Attending Physician [phone] AMOL BLACKBURN Er Physician [phone] EDIN Bonner Registered Nurse [phone] Vital Signs Unknown or Not Available. Allergies Allergy Code Allergy Type Reaction Status ATORVASTATIN 24560 Drug allergy DIZZINESS Active TERBINAFINE 18093 Drug allergy RASH Active No Known Environmental [...] 2028-9 22 mmol/L L=22 H=34 ANION GAP 57871-2 11.7 mmol/L CALCIUM SERUM 75477-2 8.3 mg/dL L=8.2 H=10. 2 BILIRUBIN TOTAL 1975-2 0.5 mg/dL L=0.0 H=1 .3 ALK. PHOS. 6768-6 70 U/L L=46 H=116 SGOT (AST) 1920-8 57 U/L L=15 H=37 SGPT (ALT) 1742-6 23 U/L L=12 H=78 TOTAL PROTEIN 2885-2 6.7 gm/dL L=6.0 H=8.0 ALBUMIN 1751-7 3.2 gm/dL L=3.4 H=5.0 AGE 75 years eGFR (non-Afr.Amer.) 62231-7 33 mL/min eGFR (Afr-Citizen Of [place]) 44196-9 40 mL/min TROPONIN HIGH SENSITIVITY* - Collect [...] % 16.7 % L=10.0 H=50.0 MONO % 68180-8 10.9 % L=2.0 H=12.0 EOS % 0.9 % L=0.0 H=8.0 BASO % 0.2 % L=0.0 H=3.0 IG % 2514-8 0.3 % L=0.0 H=1.1 NRBC % 30580-8 0.0 % L=0.0 H=0.0 NEUT abs count 751-8 6.5 th/cmm L=1.6 H=8. 4 LYMPH abs count 731-0 1.5 th/cmm L=1.5 H=4 .0 MONO abs count 742-7 1.0 th/cmm L=0.2 H=1. 0 EOS abs count 711-2 0.1 th/cmm L=0.0 H=0.5 BASO abs count 704-7 0.0 th/cmm L=0.0 H=0. 2 IG abs count 80242-5 0.0 th/cmm L=0.0 H=0.1 NRBC abs count 08715-2 0.0 mil/cmm L=0.0 H=0. 0 RBC 789-8 [...] Code Start Date End Date Former smoker [id number] Patient Decision Aids Unknown or Not Available. Discharge Instructions You were admitted to [facility] on 07/29/2021 13:57 with a principal diagnosis of ST elevation (STEMI) myocardial infarction of unspecified site You had the following tests done:CBC W/ DIFFERENTIAL*COMPREHENSIVE METABOLIC PANEL (CMP)TROPONIN HIGH SENSITIVITY* You were discharged from [facility] on 07/29/2021 15:01 Should you have any [...]
--- OUTSIDE RECORDS SUMMARY | 2023-04-11 11:46 | XMS_ITS | CCD ---
Author Name Unknown Address [address] [place] [address] [phone] Organization Unknown Address [address] [place] [address] [phone] Care Team Providers Care Typing Office Worker Name Role Phone MORIAH FLORES Attending Physician [phone] Vital Signs Vital Sign Value Unit [...] Allergy Code Allergy Type Reaction Status ATORVASTATIN 16293 Drug allergy DIZZINESS Active TERBINAFINE 83988 Drug allergy RASH Active No Known Environmental Allergies 0 No known environmental allergies Active No Known Food Allergies 0 No known food allergies Active Procedures Procedure Code Procedure Type Date EGD Transoral Biopsy Single/Multiple 68037 CPT 03/10/2021 History of Immunizations Unknown or Not Available. Problems Unknown or Not Available. Results GLUCOSE FINGER/HEEL CAPILLAR Y - Collect Date/Time: 03/10/2021 08:28 Test Name Code Test Result Test Units Test Ref Rang e GLUCOSE CAP 151 mg/dL L=70 H=116 Active Medications Medication Code Dose Units Frequency Route Modificatio n Start Date/Time amLODIPine Besylate 2.5MG Oral Tablet 383776 2.5 MILLIGRAMS DAILY ORAL 018 11:27 Prescription Detail TAKE 2.5 MILLIGRAMS ORAL DAILY ASPIRIN LOW DOSE 81MG ORAL TABLET 0 81 MILLIGRAMS DAILY ORAL 8 11:27 Prescription Detail TAKE 81 MILLIGRAMS ORAL DAILY Ibuprofen 600MG Oral Tablet 106962 600 MILLIGRAMS THREE TIMES A DAY ORAL 04/06/2017 11:27 Prescription Detail TAKE 600 MILLIGRAMS ORAL THREE TIMES A D AY Feiuvia 100MG Oral Tablet 886532 100 MILLIGRAMS DAILY ORAL 11:27 Prescription Detail TAKE 100 MILLIGRAMS ORAL DAILY Lisinopril 40MG Oral Tablet 545331 40 MILLIGRAMS DAILY ORAL 11:27 Prescription Detail TAKE 40 MILLIGRAMS ORAL DAILY metFORMIN HCl 1000MG Oral Tablet, Extended Release 7123249 1 TABLET TWICE A DAY ORAL 04/06/19 11:27 Prescription Detail TAKE 1 TABLET ORAL TWICE A DAY Medications Administered During Visit Unknown or Not Available. Encounters Encounter Diagnosis Diagnosis Code Start Date Gastric intestinal metaplasia, unspecified [id number] 03/10/2021 Social History Smoking Status Code Start Date End Date Former smoker [id number] Patient Decision Aids Unknown or Not Available. Discharge Instructions You were admitted to [facility] on 03/10/2021 08:11 with a principal diagnosis of Gastric intestinal metaplasia, unspecified You had the following procedures done:EGD Transoral Biopsy Single/Multiple You had the following tests done:GLUCOSE FINGER/HEEL CAPILLARY You were discharged from [facility] on 03/10/2021 09:50 Should you have [...]
--- OUTSIDE RECORDS SUMMARY | 2023-04-11 11:46 | XMS_ITS | CCD ---
Author Name Unknown Address [address] [place] [address] [phone] Organization Unknown Address [address] [place] [address] [phone] Care Team Providers Care Business Systems Technician Name Role Phone MORIAH FLORES Attending Physician [phone] Vital Signs Unknown or Not Available. Allergies Allergy Code Allergy Type Reaction Status TERBINAFINE 29176 Drug allergy Active No Known Environmental Allergies [...] N/A Tier- PRE-OP N/A SARS COV2 RNA: 99552-6 NEGATIVE N/A REFERENCE RANGE: NEGAT Active Medications Medication Code Dose Units Frequency Route Modificatio n Start Date/Time amLODIPine Besylate 2.5MG Oral Tablet 779866 2.5 MILLIGRAMS DAILY ORAL 11:27 Prescription Detail TAKE 2.5 MILLIGRAMS ORAL DAILY ASPIRIN LOW DOSE 81MG ORAL TABLET 0 81 MILLIGRAMS DAILY ORAL 8 11:27 Prescription Detail TAKE 81 MILLIGRAMS ORAL DAILY Ibuprofen 600MG Oral Tablet 091510 600 MILLIGRAMS THREE TIMES A DAY ORAL 04/06/2017 11:27 Prescription Detail TAKE 600 MILLIGRAMS ORAL THREE TIMES A D AY Januvia 100MG Oral Tablet 868965 100 MILLIGRAMS DAILY ORAL 11:27 Prescription Detail TAKE 100 MILLIGRAMS ORAL DAILY Lisinopril 40MG Oral Tablet 551596 40 MILLIGRAMS DAILY ORAL 11:27 Prescription Detail TAKE 40 MILLIGRAMS ORAL DAILY metFORMIN HCl 1000MG Oral Tablet, Extended Release [id number] 1 TABLET TWICE A DAY ORAL 04/06/19 18 11:27 Prescription Detail TAKE 1 TABLET ORAL TWICE A DAY Medications Administered During Visit Unknown or Not Available. Encounters Encounter Diagnosis Diagnosis Code Start Date Pre-surgery testing [id number] 03/08/2021 Social History Smoking Status Code Start Date End Date Former smoker [id number] Patient Decision Aids Unknown or Not Available. Discharge Instructions You were admitted to [facility] on 03/08/2021 23:14 with a principal diagnosis of Encounter for preprocedural laboratory examination You had the following tests done:RAMSES COVID RHEONIX* You were discharged from [facility] on 03/08/2021 23:15 Should you have any [...]
--- OUTSIDE RECORDS SUMMARY | 2023-04-11 11:46 | XMS_ITS | CCD ---
Author Name Unknown Address [address] [place] [address] [phone] Organization Unknown Address [address] [place] [address] [phone] Care Team Providers Care Distilling Department Supervisor Name Role Phone WALLY BAUMANN Attending Physician [phone] Vital Signs Unknown or Not Available. Allergies Allergy Code Allergy Type Reaction Status ATORVASTATIN 08413 Drug allergy DIZZINESS Active TERBINAFINE 21258 Drug allergy RASH Active No Known Environmental Allergies 0 No known environmental allergies Active No Known Food Allergies 0 No known food allergies Active Procedures Unknown or Not Available. History of Immunizations Unknown or Not Available. Problems Unknown or Not Available. Results RAMSES COVID RHEONIX* - Bart ect Date/Time: 08/27/2021 10:09 Test Name Code Test Result Test Units Test Ref Rang e Tier- 94968-9 PRE-OP N/A SARS COV2 RNA: 07895-2 NEGATIVE N/A REFERENCE RANGE: NEGAT Active Medications Medication Code Dose Units Frequency Route Modificatio n Start Date/Time amLODIPine Besylate 2.5MG Oral Tablet 860229 2.5 MILLIGRAMS DAILY ORAL 11:27 Prescription Detail TAKE 2.5 MILLIGRAMS ORAL DAILY ASPIRIN LOW DOSE 81MG ORAL TABLET 0 81 MILLIGRAMS DAILY ORAL 8 11:27 Prescription Detail TAKE 81 MILLIGRAMS ORAL DAILY Ibuprofen 600MG Oral Tablet 570317 600 MILLIGRAMS THREE TIMES A DAY ORAL 04/06/2017 11:27 Prescription Detail TAKE 600 MILLIGRAMS ORAL THREE TIMES A D AY Januvia 100MG Oral Tablet 975645 100 MILLIGRAMS DAILY ORAL 018 11:27 Prescription Detail TAKE 100 MILLIGRAMS ORAL DAILY Lisinopril 40MG Oral Tablet 197684 40 MILLIGRAMS DAILY ORAL 11:27 Prescription Detail TAKE 40 MILLIGRAMS ORAL DAILY metFORMIN HCl 1000MG Oral Tablet, Extended Release 7498012 1 TABLET TWICE A DAY ORAL 04/06/19 18 11:27 Prescription Detail TAKE 1 TABLET ORAL TWICE A DAY Medications Administered During Visit Unknown or Not Available. Encounters Encounter Diagnosis Diagnosis Code Start Date Pre-surgery testing [id number] 08/27/2021 Social History Smoking Status Code Start Date End Date Former smoker [id number] Patient Decision Aids Unknown or Not Available. Discharge Instructions You were admitted to [facility] on 08/27/2021 18:35 with a principal diagnosis of Encounter for preprocedural laboratory examination You had the following tests done:RAMSES RICKSID RHEONIX* You were discharged from [facility] on 08/27/2021 18:35 Should you have any [...]
--- OUTSIDE RECORDS SUMMARY | 2023-04-11 11:46 | XMS_ITS | CCD ---
Author Name Unknown Address [address] [place] [address] [phone] Organization Unknown Address [address] [place] [address] [phone] Care Team Providers Care Maintenance Custodian Name Role Phone DELICIA CURRIE Attending Physician [phone] DELICIA CURRIE Rounding (Secondary) Physician [phone] Vital Signs Unknown or Not Available. Allergies Allergy Code Allergy Type Reaction Status ATORVASTATIN 17478 Drug allergy DIZZINESS Active TERBINAFINE 25455 Drug allergy RASH Active No Known Environmental Allergies 0 No known environmental allergies Active No Known Food Allergies 0 No known food allergies Active Procedures Unknown or Not Available. History of Immunizations Unknown or Not Available. Problems Unknown or Not Available. Results Unknown or Not Available. Active Medications Medication Code Dose Units Frequency Route Modificatio n Start Date/Time amLODIPine Besylate 2.5MG Oral Tablet 471314 2.5 MILLIGRAMS DAILY ORAL 11:27 Prescription Detail TAKE 2.5 MILLIGRAMS ORAL DAILY ASPIRIN LOW DOSE 81MG ORAL TABLET 0 81 MILLIGRAMS DAILY ORAL 8 11:27 Prescription Detail TAKE 81 MILLIGRAMS ORAL DAILY Ibuprofen 600MG Oral Tablet 868421 600 MILLIGRAMS THREE TIMES A DAY ORAL 04/06/2017 11:27 Prescription Detail TAKE 600 MILLIGRAMS ORAL THREE TIMES A D AY Januvia 100MG Oral Tablet 635989 100 MILLIGRAMS DAILY ORAL 11:27 Prescription Detail TAKE 100 MILLIGRAMS ORAL DAILY Lisinopril 40MG Oral Tablet 621488 40 MILLIGRAMS DAILY ORAL 11:27 Prescription Detail TAKE 40 MILLIGRAMS ORAL DAILY metFORMIN HCl 1000MG Oral Tablet, Extended Release [id number] 1 TABLET TWICE A DAY ORAL 04/06/19 18 11:27 Prescription Detail TAKE 1 TABLET ORAL TWICE A DAY Medications Administered During Visit Unknown or Not Available. Encounters Encounter Diagnosis Diagnosis Code Start Date Atherosclerotic heart diseas e of [place] coronary artery with other forms of angina pectoris [id number] 08/24/2021 Social History Smoking Status Code Start Date End Date Former smoker [id number] Patient Decision Aids Unknown or Not Available. Discharge Instructions You were admitted to [facility] on 08/24/2021 15:34 with a principal diagnosis of Atherosclerotic heart disease of [place] coronary artery with other forms of angina [...]
[2023-04-11 14:50] LABS: Anion Gap 8.7 mmol/L (3-11); BUN 22 mg/dL (7-18); CO2 26.3 mmol/L (21.0-32.0); CREATININE 1.6 mg/dL (0.70-1.30); Calcium 9.4 mg/dL (8.5-10.1); Calculated LDL 52 mg/dL (<100); Chloride 101 mmol/L (98-107); Cholesterol 104 mg/dL (<200); Estimated GFR 43.83 (mL/min/1.73m2); Glucose 108 mg/dL (74-106); HDL Cholesterol 36 mg/dL (40-60); Potassium 4.3 mmol/L (3.5-5.1); Sodium 136 mmol/L (136-145); Triglyceride 84 mg/dL (<150)
== END 2023-04-11 11:43 | disposition home or self-care (01) ==
LOC: NCHCN 11:42
PROVIDERS: PCP Family Medicine; Visit Provider Nurse Practitioner Family
DX: I10 Essential (primary) hypertension (principal); I25.10 Atherosclerotic heart disease of native coronary artery without angina pectoris
CPT/HCPCS: 80048; 80061

== ENCOUNTER 2023-04-12 20:53 | Outpatient (REF) | payer OTHER, SELFPAY ==
[2023-04-13 18:27] LABS: PSA, Screening 0.9 ng/mL (<=6.5)
--- OUTSIDE RECORDS SUMMARY | 2023-04-14 11:16 | XMS_ITS | CCD ---
Author Name Unknown Address [address] [place] [address] [phone] Organization Unknown Address [address] [place] [address] [phone] Care Team Providers Care Contract Programmer Name Role Phone WALLY BAUMANN Attending Physician [phone] Vital Signs Unknown or Not Available. Allergies Allergy Code Allergy Type Reaction Status ATORVASTATIN 95534 Drug allergy DIZZINESS Active TERBINAFINE 60704 Drug allergy RASH Active No Known Environmental Allergies 0 No known environmental allergies Active No Known Food Allergies 0 No known food allergies Active Procedures Unknown or Not Available. History of Immunizations Unknown or Not Available. Problems Unknown or Not Available. Results RAMSES COVID RHEONIX* - Bart ect Date/Time: 08/27/2021 10:09 Test Name Code Test Result Test Units Test Ref Rang e Tier- 20520-3 PRE-OP N/A SARS COV2 RNA: 18736-4 NEGATIVE N/A REFERENCE RANGE: NEGAT Active Medications Medication Code Dose Units Frequency Route Modificatio n Start Date/Time amLODIPine Besylate 2.5MG Oral Tablet 174195 2.5 MILLIGRAMS DAILY ORAL 11:27 Prescription Detail TAKE 2.5 MILLIGRAMS ORAL DAILY ASPIRIN LOW DOSE 81MG ORAL TABLET 0 81 MILLIGRAMS DAILY ORAL 8 11:27 Prescription Detail TAKE 81 MILLIGRAMS ORAL DAILY Ibuprofen 600MG Oral Tablet 111393 600 MILLIGRAMS THREE TIMES A DAY ORAL 04/06/2017 11:27 Prescription Detail TAKE 600 MILLIGRAMS ORAL THREE TIMES A D AY Januvia 100MG Oral Tablet 146068 100 MILLIGRAMS DAILY ORAL 018 11:27 Prescription Detail TAKE 100 MILLIGRAMS ORAL DAILY Lisinopril 40MG Oral Tablet 951933 40 MILLIGRAMS DAILY ORAL 11:27 Prescription Detail TAKE 40 MILLIGRAMS ORAL DAILY metFORMIN HCl 1000MG Oral Tablet, Extended Release [id number] 1 TABLET TWICE A DAY ORAL 04/06/19 18 11:27 Prescription Detail TAKE 1 TABLET ORAL TWICE A DAY Medications Administered During Visit Unknown or Not Available. Encounters Encounter Diagnosis Diagnosis Code Start Date Pre-surgery testing [id number] 08/27/2021 Social History Smoking Status Code Start Date End Date Former smoker 0583770 Patient Decision Aids Unknown or Not Available. Discharge Instructions You were admitted to [facility] on 08/27/2021 18:35 with a principal diagnosis of Encounter for preprocedural laboratory examination You had the following tests done:RAMSES RICKSID RHEONIX* You were discharged from [facility] on 08/27/2021 18:35 Should you have [...]
--- OUTSIDE RECORDS SUMMARY | 2023-04-14 11:16 | XMS_ITS | CCD ---
Author Name Unknown Address [address] [place] [address] [phone] Organization Unknown Address [address] [place] [address] [phone] Care Team Providers Care Licensed Marine Engineer Name Role Phone GABRIEL DOWLING Attending Physician [phone] Vital Signs Unknown or Not Available. Allergies Allergy Code Allergy Type Reaction Status ATORVASTATIN 97648 Drug allergy DIZZINESS Active TERBINAFINE 18752 Drug allergy RASH Active No Known Environmental Allergies 0 No known environmental allergies Active No Known Food Allergies 0 No known food allergies Active Procedures Unknown or Not Available. History of Immunizations Unknown or Not Available. Problems Unknown or Not Available. Results Unknown or Not Available. Active Medications Medication Code Dose Units Frequency Route Modificatio n Start Date/Time amLODIPine Besylate 2.5MG Oral Tablet 680520 2.5 MILLIGRAMS DAILY ORAL 11:27 Prescription Detail TAKE 2.5 MILLIGRAMS ORAL DAILY ASPIRIN LOW DOSE 81MG ORAL TABLET 0 81 MILLIGRAMS DAILY ORAL 8 11:27 Prescription Detail TAKE 81 MILLIGRAMS ORAL DAILY Ibuprofen 600MG Oral Tablet 060575 600 MILLIGRAMS THREE TIMES A DAY ORAL 04/06/2017 11:27 Prescription Detail TAKE 600 MILLIGRAMS ORAL THREE TIMES A D AY Januvia 100MG Oral Tablet 641801 100 MILLIGRAMS DAILY ORAL 018 11:27 Prescription Detail TAKE 100 MILLIGRAMS ORAL DAILY Lisinopril 40MG Oral Tablet 200966 40 MILLIGRAMS DAILY ORAL 11:27 Prescription Detail TAKE 40 MILLIGRAMS ORAL DAILY metFORMIN HCl 1000MG Oral Tablet, Extended Release 2552460 1 TABLET TWICE A DAY ORAL 04/06/19 18 11:27 Prescription Detail TAKE 1 TABLET ORAL TWICE A DAY Medications Administered During Visit Unknown or Not Available. Encounters Encounter Diagnosis Diagnosis Code Start Date ST elevation (STEMI) myocard ial infarction of unspecified site I213 09/22/2021 Social History Smoking Status Code Start Date End Date Former smoker [id number] Patient Decision Aids Unknown or Not Available. [...]
--- OUTSIDE RECORDS SUMMARY | 2023-04-14 11:16 | XMS_ITS | CCD ---
Author Name Unknown Address [address] [place] [address] [phone] Organization Unknown Address [address] [place] [address] [phone] Care Team Providers Care Community Arts Worker Name Role Phone CURRIEDELICIA ALCAZAR Attending Physician [phone] Vital Signs Unknown or Not Available. Allergies Allergy Code Allergy Type Reaction Status ATORVASTATIN 07535 Drug allergy DIZZINESS Active TERBINAFINE 86236 Drug allergy RASH Active No Known Environmental Allergies 0 No known environmental allergies Active No Known Food Allergies 0 No known food allergies Active Procedures Unknown or Not Available. History of Immunizations Unknown or Not Available. Problems Unknown or Not Available. Results Unknown or Not Available. Active Medications Medication Code Dose Units Frequency Route Modificatio n Start Date/Time amLODIPine Besylate 2.5MG Oral Tablet 802720 2.5 MILLIGRAMS DAILY ORAL 11:27 Prescription Detail TAKE 2.5 MILLIGRAMS ORAL DAILY ASPIRIN LOW DOSE 81MG ORAL TABLET 0 81 MILLIGRAMS DAILY ORAL 8 11:27 Prescription Detail TAKE 81 MILLIGRAMS ORAL DAILY Ibuprofen 600MG Oral Tablet 889238 600 MILLIGRAMS THREE TIMES A DAY ORAL 04/06/2017 11:27 Prescription Detail TAKE 600 MILLIGRAMS ORAL THREE TIMES A D AY Januvia 100MG Oral Tablet 859159 100 MILLIGRAMS DAILY ORAL 11:27 Prescription Detail TAKE 100 MILLIGRAMS ORAL DAILY Lisinopril 40MG Oral Tablet 766515 40 MILLIGRAMS DAILY ORAL 11:27 Prescription Detail TAKE 40 MILLIGRAMS ORAL DAILY metFORMIN HCl 1000MG Oral Tablet, Extended Release [id number] 1 TABLET TWICE A DAY ORAL 04/06/19 18 11:27 Prescription Detail TAKE 1 TABLET ORAL TWICE A DAY Medications Administered During Visit Unknown or Not Available. Encounters Encounter Diagnosis Diagnosis Code Start Date Hypertensive heart disease with congestive heart failure [id number] 07/26/2022 Social History Smoking Status Code Start Date End Date Former smoker [id number] Patient Decision Aids Unknown or Not Available. Discharge Instructions You were admitted to [facility] on 07/26/2022 14:49 with a principal diagnosis of Hypertensive heart disease with heart failure You were discharged from [facility] on 07/26/2022 14:49 Should you have [...]
--- OUTSIDE RECORDS SUMMARY | 2023-04-14 11:17 | XMS_ITS | CCD ---
Author Name Unknown Address [address] [place] [address] [phone] Organization Unknown Address [address] [place] [address] [phone] Care Team Providers Care Chemical Processing Technician Name Role Phone DELICIA CURRIE Attending Physician [phone] DELICIA CURRIE Rounding (Secondary) Physician [phone] Vital Signs Unknown or Not Available. Allergies Allergy Code Allergy Type Reaction Status ATORVASTATIN 76474 Drug allergy DIZZINESS Active TERBINAFINE 55382 Drug allergy RASH Active No Known Environmental Allergies 0 No known environmental allergies Active No Known Food Allergies 0 No known food allergies Active Procedures Unknown or Not Available. History of Immunizations Unknown or Not Available. Problems Unknown or Not Available. Results Unknown or Not Available. Active Medications Medication Code Dose Units Frequency Route Modificatio n Start Date/Time amLODIPine Besylate 2.5MG Oral Tablet 269193 2.5 MILLIGRAMS DAILY ORAL 11:27 Prescription Detail TAKE 2.5 MILLIGRAMS ORAL DAILY ASPIRIN LOW DOSE 81MG ORAL TABLET 0 81 MILLIGRAMS DAILY ORAL 8 11:27 Prescription Detail TAKE 81 MILLIGRAMS ORAL DAILY Ibuprofen 600MG Oral Tablet 884344 600 MILLIGRAMS THREE TIMES A DAY ORAL 04/06/2017 11:27 Prescription Detail TAKE 600 MILLIGRAMS ORAL THREE TIMES A D AY Januvia 100MG Oral Tablet 471364 100 MILLIGRAMS DAILY ORAL 11:27 Prescription Detail TAKE 100 MILLIGRAMS ORAL DAILY Lisinopril 40MG Oral Tablet 346332 40 MILLIGRAMS DAILY ORAL 11:27 Prescription Detail TAKE 40 MILLIGRAMS ORAL DAILY metFORMIN HCl 1000MG Oral Tablet, Extended Release [id number] 1 TABLET TWICE A DAY ORAL 04/06/19 18 11:27 Prescription Detail TAKE 1 TABLET ORAL TWICE A DAY Medications Administered During Visit Unknown or Not Available. Encounters Encounter Diagnosis Diagnosis Code Start Date Atherosclerotic heart diseas e of [place] coronary artery with other forms of angina pectoris [id number] 08/24/2021 Social History Smoking Status Code Start Date End Date Former smoker [id number] Patient Decision Aids Unknown or Not Available. Discharge Instructions You were admitted to [facility] on 08/24/2021 15:34 with a principal diagnosis of Atherosclerotic heart disease of [place] coronary artery with other forms of angina pectoris You were discharged from [facility] on 08/24/2021 00:00 Should you [...]
--- OUTSIDE RECORDS SUMMARY | 2023-04-14 11:17 | XMS_ITS | CCD ---
Author Name Unknown Address [address] [place] [address] [phone] Organization Unknown Address [address] [place] [address] [phone] Care Team Providers Care Assistant Research Scientist Name Role Phone AMOL BLACKBURN Attending Physician [phone] AMOL BLACKBURN Er Physician 5 [phone] EDIN Bonenr Registered Nurse [phone] Vital Signs Unknown or Not Available. Allergies Allergy Code Allergy Type Reaction Status ATORVASTATIN 26554 Drug allergy DIZZINESS Active TERBINAFINE 67764 Drug allergy RASH Active No Known Environmental [...] 2028-9 22 mmol/L L=22 H=34 ANION GAP 06981-1 11.7 mmol/L CALCIUM SERUM 25642-9 8.3 mg/dL L=8.2 H=10. 2 BILIRUBIN TOTAL 1975-2 0.5 mg/dL L=0.0 H=1 .3 ALK. PHOS. 6768-6 70 U/L L=46 H=116 SGOT (AST) 1920-8 57 U/L L=15 H=37 SGPT (ALT) 1742-6 23 U/L L=12 H=78 TOTAL PROTEIN 2885-2 6.7 gm/dL L=6.0 H=8.0 ALBUMIN 1751-7 3.2 gm/dL L=3.4 H=5.0 AGE 75 years eGFR (non-Afr.Amer.) 11949-1 33 mL/min eGFR (Afr-Kazakh) 52041-5 40 mL/min TROPONIN HIGH SENSITIVITY* - Collect [...] % 16.7 % L=10.0 H=50.0 MONO % 48759-0 10.9 % L=2.0 H=12.0 EOS % 0.9 % L=0.0 H=8.0 BASO % 0.2 % L=0.0 H=3.0 IG % 2514-8 0.3 % L=0.0 H=1.1 NRBC % 46065-7 0.0 % L=0.0 H=0.0 NEUT abs count 751-8 6.5 th/cmm L=1.6 H=8. 4 LYMPH abs count 731-0 1.5 th/cmm L=1.5 H=4 .0 MONO abs count 742-7 1.0 th/cmm L=0.2 H=1. 0 EOS abs count 711-2 0.1 th/cmm L=0.0 H=0.5 BASO abs count 704-7 0.0 th/cmm L=0.0 H=0. 2 IG abs count 12678-9 0.0 th/cmm L=0.0 H=0.1 NRBC abs count 74337-7 0.0 mil/cmm L=0.0 H=0. 0 RBC 789-8 [...] Code Start Date End Date Former smoker [id number] Patient Decision Aids Unknown or Not Available. Discharge Instructions You were admitted to [facility] on 07/29/2021 13:57 with a principal diagnosis of ST elevation (STEMI) myocardial infarction of unspecified site You had the following tests done:CBC W/ DIFFERENTIAL*COMPREHENSIVE METABOLIC PANEL (CMP)TROPONIN HIGH SENSITIVITY* You were discharged from [facility] on 07/29/2021 15:01 Should you [...]
--- OUTSIDE RECORDS SUMMARY | 2023-04-14 11:17 | XMS_ITS | CCD ---
Author Name Unknown Address [address] [place] [address] [phone] Organization Unknown Address [address] [place] [address] [phone] Care Team Providers Care Director Of Anesthesia Services Name Role Phone MORIAH FLORES Attending Physician [phone] Vital Signs Unknown or Not Available. Allergies Allergy Code Allergy Type Reaction Status TERBINAFINE 47900 Drug allergy Active No Known Environmental Allergies [...] N/A Tier- PRE-OP N/A SARS COV2 RNA: 90193-1 NEGATIVE N/A REFERENCE RANGE: NEGAT Active Medications Medication Code Dose Units Frequency Route Modificatio n Start Date/Time amLODIPine Besylate 2.5MG Oral Tablet [id number] 2.5 MILLIGRAMS DAILY ORAL 11:27 Prescription Detail TAKE 2.5 MILLIGRAMS ORAL DAILY ASPIRIN LOW DOSE 81MG ORAL TABLET 0 81 MILLIGRAMS DAILY ORAL 8 11:27 Prescription Detail TAKE 81 MILLIGRAMS ORAL DAILY Ibuprofen 600MG Oral Tablet 744624 600 MILLIGRAMS THREE TIMES A DAY ORAL 04/06/2017 11:27 Prescription Detail TAKE 600 MILLIGRAMS ORAL THREE TIMES A D AY Januvia 100MG Oral Tablet 673805 100 MILLIGRAMS DAILY ORAL 11:27 Prescription Detail TAKE 100 MILLIGRAMS ORAL DAILY Lisinopril 40MG Oral Tablet 941210 40 MILLIGRAMS DAILY ORAL 11:27 Prescription Detail TAKE 40 MILLIGRAMS ORAL DAILY metFORMIN HCl 1000MG Oral Tablet, Extended Release [id number] 1 TABLET TWICE A DAY ORAL 04/06/19 18 11:27 Prescription Detail TAKE 1 TABLET ORAL TWICE A DAY Medications Administered During Visit Unknown or Not Available. Encounters Encounter Diagnosis Diagnosis Code Start Date Pre-surgery testing [id number] 03/08/2021 Social History Smoking Status Code Start Date End Date Former smoker [id number] Patient Decision Aids Unknown or Not Available. Discharge Instructions You were admitted to [facility] on 03/08/2021 23:14 with a principal diagnosis of Encounter for preprocedural laboratory examination You had the following tests done:RAMSES COVID RHEONIX* You were discharged from [facility] on 03/08/2021 23:15 Should you have [...]
== END 2023-04-12 20:54 | disposition home or self-care (01) ==
LOC: NCHCN 20:53
PROVIDERS: PCP Family Medicine; Visit Provider Nurse Practitioner Family
DX: Z12.5 Encounter for screening for malignant neoplasm of prostate (principal)
CPT/HCPCS: 84153

== ENCOUNTER 2023-07-03 13:45 | Outpatient (REF) | payer OTHER, SELFPAY ==
[2023-07-03 21:40] LABS: Abs Immature Grans 0.02 10^3/uL (0.0-0.06); Absolute Basophil Count 0.05 10^3/uL (0.0-0.2); Absolute Lymphocyte Count 2.24 10^3/uL (1.2-3.4); Absolute Monocyte Count 0.64 10^3/uL (0.1-0.8); Absolute Neutrophil Count 4.43 10^3/uL (1.2-6.7); Basophils % 0.7; Eosinophils % 1.3; HGB 16.7 g/dL (13.5-17.5); Immature Grans % 0.3; Lymphocytes % 29.9; MCH 29.9 pg (27.0-33.0); MCHC 34.1 % (32.0-36.0); MCV 88 fL (80-95); Monocytes % 8.6; Neutrophils % 59.2; Platelet Count 196 10^3/uL (130-400); RBC 5.58 10^6/uL (4.36-5.78); RDW 15.6 % (11.8-14.1); RDW-SD 49.8 fL; WBC 7.48 10^3/uL (4.4-10.8)
[2023-07-03 21:59] LABS: ALT 31 U/L (16-63); AST 17 U/L (15-37); Albumin 3.4 g/dL (3.4-5.0); Alkaline Phosphatase 74 U/L (46-116); Anion Gap 8.9 mmol/L (3-11); BUN 18 mg/dL (7-18); Bilirubin, Total 0.5 mg/dL (0.2-1.0); CO2 26.1 mmol/L (21.0-32.0); CREATININE 1.6 mg/dL (0.70-1.30); Calcium 8.5 mg/dL (8.5-10.1); Chloride 105 mmol/L (98-107); Estimated GFR 43.83 (mL/min/1.73m2); Glucose 178 mg/dL (74-106); Potassium 4.3 mmol/L (3.5-5.1); Sodium 140 mmol/L (136-145); TSH 2.42 uIU/Ml (0.36-3.74); Total Protein 6.6 g/dL (6.4-8.2)
== END 2023-07-03 13:46 | disposition home or self-care (01) ==
LOC: NCHCN 13:45
PROVIDERS: PCP Family Medicine; Visit Provider Internal Medicine
DX: R00.2 Palpitations (principal)
CPT/HCPCS: 80053; 84443; 85025